=== PATIENT | female | born 1950 | race Caucasian/White ===

== ENCOUNTER 2019-01-24 16:49 | Emergency (ER) | payer OTHER ==
[2019-01-24] MEDS ORDERED: SODIUM CHLORIDE 0.9% (FLUSH) 10 ML SYG IV PRN (17:06)
[2019-01-24] MEDS ORDERED: MORPHINE SULFATE INJ 10 MG/ML VIAL IV ONE (17:10)
[2019-01-24 17:12] VITALS: O2SAT 99
[2019-01-24] MEDS ORDERED: ACETAMINOPHEN IV 1000MG 1,000 MG in PREMIX BOTTLE 1 BOTTLE IVPB ONE (17:27)
[2019-01-24] MEDS ORDERED: ACETAMINOPHEN IV 1000MG 100 ML ONE (17:35)
--- NOTE | 2019-01-24 19:12 | RAD ---
EXAM DESCRIPTION: Chest,1 View CLINICAL HISTORY: 68 years Female trauma COMPARISON: None. FINDINGS: The cardiomediastinal silhouette appears unremarkable. No consolidating infiltrates or pleural effusions. No pneumothorax. IMPRESSION: No acute abnormality is identified. Electronically signed by: Francisca Borjas MD 01/24/2019 7:11 PM LINE MAINTAINER
--- NOTE | 2019-01-24 19:13 | RAD ---
EXAM DESCRIPTION: Forearm,Right CLINICAL HISTORY: 68 years Female , limited mobility of arm COMPARISON: None. TECHNIQUE: RIGHT forearm, two views FINDINGS: No acute fractures or dislocations are identified. No osseous destructive lesions. IMPRESSION: No acute fracture is identified. Electronically signed by: Francisca Borjas MD 01/24/2019 7:12 PM [facility]
--- NOTE | 2019-01-24 19:16 | RAD ---
EXAM DESCRIPTION: Knee,Right 1 or 2 Views (accession [id number]), Femur,Right (accession [id number]), Pelvis (accession [id number]) CLINICAL HISTORY: 68 years Female, trauma COMPARISON: None. FINDINGS: No fracture or dislocation of the pelvis, right hip, femur and knee. Mild diffuse osteopenia. Joint spaces are grossly preserved. Mild medial knee joint space narrowing. Small suprapatellar joint effusion. Soft tissues are unremarkable. IMPRESSION: No acute osseous abnormality. Diffuse osteopenia and degenerative changes. Small suprapatellar joint effusion. Electronically signed by: Kevin Ware DO 01/24/2019 7:14 PM LITERATURE TEACHER
--- NOTE | 2019-01-24 19:16 | RAD ---
EXAM DESCRIPTION: Knee,Right 1 or 2 Views (accession [id number]), Femur,Right (accession [id number]), Pelvis (accession [id number]) CLINICAL HISTORY: 68 years Female, trauma COMPARISON: None. FINDINGS: No fracture or dislocation of the pelvis, right hip, femur and knee. Mild diffuse osteopenia. Joint spaces are grossly preserved. Mild medial knee joint space narrowing. Small suprapatellar joint effusion. Soft tissues are unremarkable. IMPRESSION: No acute osseous abnormality. Diffuse osteopenia and degenerative changes. Small suprapatellar joint effusion. Electronically signed by: Kevin Ware DO 01/24/2019 7:14 PM REFRIGERATION ENGINEER
--- NOTE | 2019-01-24 19:16 | RAD ---
EXAM DESCRIPTION: Knee,Right 1 or 2 Views (accession [id number]), Femur,Right (accession [id number]), Pelvis (accession [id number]) CLINICAL HISTORY: 68 years Female, trauma COMPARISON: None. FINDINGS: No fracture or dislocation of the pelvis, right hip, femur and knee. Mild diffuse osteopenia. Joint spaces are grossly preserved. Mild medial knee joint space narrowing. Small suprapatellar joint effusion. Soft tissues are unremarkable. IMPRESSION: No acute osseous abnormality. Diffuse osteopenia and degenerative changes. Small suprapatellar joint effusion. Electronically signed by: Kevin Ware DO 01/24/2019 7:14 PM MATERIALS DIRECTOR
--- NOTE | 2019-01-24 19:17 | RAD ---
EXAM DESCRIPTION: Hand,Right 3 Views CLINICAL HISTORY: 68 years Female, trauma COMPARISON: None. FINDINGS: No fracture or dislocation. Diffuse osteopenia. Advanced degenerative changes of the DIP. Degenerative changes of the first CMC. Dorsal hand swelling. IMPRESSION: No acute osseous abnormality. Osteoarthritic changes. Dorsal hand swelling. Electronically signed by: Kevin Ware DO 01/24/2019 7:15 PM DESOLDERER
--- NOTE | 2019-01-24 19:18 | RAD ---
EXAM DESCRIPTION: Humerus, right (accession [id number]), Shoulder, right 2 or More Views (accession [id number]) CLINICAL HISTORY: 68 years Female, trauma COMPARISON: None. FINDINGS/Impression: Acute fractures of the right greater tuberosity and humeral neck. No dislocation. Soft tissue swelling. Degenerative changes of the acromial clavicular joint.. Electronically signed by: Kevin Ware DO 01/24/2019 7:17 PM POLICE DISPATCHER
--- NOTE | 2019-01-24 19:19 | RAD ---
EXAM DESCRIPTION: Humerus, right (accession [id number]), Shoulder, right 2 or More Views (accession [id number]) CLINICAL HISTORY: 68 years Female, trauma COMPARISON: None. FINDINGS/Impression: Acute fractures of the right greater tuberosity and humeral neck. No dislocation. Soft tissue swelling. Degenerative changes of the acromial clavicular joint.. Electronically signed by: Kevin Ware DO 01/24/2019 7:17 PM MEDICAL INSURANCE CLAIMS PROCESSOR
--- NOTE | 2019-01-24 19:30 | ED.PDOC ---
History of Present Illness - General Chief Complaint: Trauma Stated Complaint: s/p fall Time Seen by Provider: 01/24/19 17:02 - History of Present Illness Initial Comments: pt fell down and hit the Right upper extremity and R lower extremity , having pain and decrease range of motion , no head injury Associated Symptoms: denies symptoms Allergies/Adverse Reactions: Allergies Cortisone Allergy (Verified 01/24/19 17:28) Doxycycline Allergy (Verified 01/24/19 17:28) Iodine Allergy (Verified 01/24/19 17:28) Morphine Allergy (Verified 01/24/19 17:28) Home Medications: Ambulatory Orders Acetaminophen W/ Codeine [Tylenol W/ CODEINE #3] 1 tablet PO Q6HRS #12 01/24/19 Review of Systems - Review of Systems Constitutional: States: no symptoms reported EENTM: States: no symptoms reported Respiratory: States: no symptoms reported Cardiology: States: no symptoms reported Gastrointestinal/Abdominal: States: no symptoms reported Genitourinary: States: no symptoms reported Musculoskeletal: States: see HPI Skin: States: no symptoms reported Neurological: States: no symptoms reported Endocrine: States: no symptoms reported Hematologic/Lymphatic: States: no symptoms reported Past Medical History (General) - Patient Medical History Hx Seizures: Yes Hx Stroke: No Hx Asthma: Yes Hx Cardiac Disorders: Yes - [place] Hx Congestive Heart Failure: No Hx Thyroid Disease: Yes Hx Diabetes: Yes Hx Cancer: Yes - Cervical - Vaccination History Hx Influenza Vaccination: Yes - Social History Hx Tobacco Use: Yes Family Medical History - Family History Mother Family History: Unknown Living Status: Physical Exam - Physical Exam General Appearance: Alert, Comfortable Eye Exam: bilateral normal Ears, Nose, Throat: normal ENT inspection Neck: non-tender, full range of motion, supple, normal inspection Respiratory: lungs clear, normal breath sounds, no respiratory distress, no accessory muscle use Cardiovascular/Chest: regular rate, rhythm, no edema, no gallop Gastrointestinal/Abdominal: non tender, soft, no organomegaly Extremity: other - tenderness over the R upper extremity and knee , decrease range of motion of R shoulder joint Progress - EKG/XRAY/CT EKG: Sinus, no ST T wave changes Departure - Departure Clinical Impression: Fracture of bone of right shoulder, Fracture of humerus Time of Disposition: 19:35 Disposition: Discharge to Home or Self Care Condition: Good Departure Forms: ED Discharge - Pt. Copy, Patient Portal Self Enrollment Instructions: DI for Trauma Diet: resume usual diet Prescriptions: Acetaminophen W/ Codeine [Tylenol W/ CODEINE #3] 1 tablet PO Q6HRS #12 Home Medications: Ambulatory Orders Acetaminophen W/ Codeine [Tylenol W/ CODEINE #3] 1 tablet PO Q6HRS #12 01/24/19 Additional Instructions: Follow up with PCP in 1-2 weeks Refer to ortho
[2019-01-24] MEDS ORDERED: ACETAMINOPHEN W/COD #3 TAB (ER Disp) PO ONE (19:38)
[2019-01-24 19:50] VITALS: BP 148/78; TEMP 98.2
== END 2019-01-24 20:22 | disposition home or self-care (01) ==
LOC: ER 16:49
DX: S42.251A Displaced fracture of greater tuberosity of right humerus, initial encounter for closed fracture (principal); S42.292A Other displaced fracture of upper end of left humerus, initial encounter for closed fracture; M79.604 Pain in right leg; M85.80 Other specified disorders of bone density and structure, unspecified site; R56.9 Unspecified convulsions; J45.909 Unspecified asthma, uncomplicated; I25.2 Old myocardial infarction; E07.9 Disorder of thyroid, unspecified; E11.9 Type 2 diabetes mellitus without complications; Z85.41 Personal history of malignant neoplasm of cervix uteri; Z88.8 Allergy status to other drugs, medicaments and biological substances; Z88.1 Allergy status to other antibiotic agents; Z91.041 Radiographic dye allergy status; Z88.5 Allergy status to narcotic agent; W19.XXXA Unspecified fall, initial encounter; Y92.89 Other specified places as the place of occurrence of the external cause

== ENCOUNTER 2019-01-25 16:47 | Observation (INO) | payer OTHER ==
[2019-01-25] MEDS ORDERED: MORPHINE SULFATE INJ 10 MG/ML VIAL IV ONE (17:35)
--- NOTE | 2019-01-25 17:36 | ED.PDOC ---
History of Present Illness - General Chief Complaint: Trauma Time Seen by Provider: 01/25/19 17:05 Source: patient Exam Limitations: no limitations - History of Present Illness Initial Comments: the patient is a 68-year-old female presenting to the emergency room secondary to uncontrolled pain, gait instability and inability to perform her activities of daily living. Apparently yesterday the patient fell and broke her proximal right humerus. She was appropriately placed in a sling. She broke the right side and that is her dominant side. The patient does have long-standing gait instability issues related to vertigo and chronic back pain. She normally has to use a cane on her right side but is currently unable to do that. She is having diffuse pain from a fall yesterday including left-sided chest wall pain, left shoulder pain, left knee pain, left hip pain, all of which is contributing to increased gait instability. She reports that she almost fell several times last night. She is unable to dress herself or take care of herself at this point. The pain is uncontrolled with oral medications. She is a type II diabetic. Timing/Duration: 24 hours Severity: severe Improving Factors: immobilization Worsening Factors: movement Associated Symptoms: chest pain, weakness Allergies/Adverse Reactions: Allergies Cortisone Allergy (Verified 01/24/19 17:28) Doxycycline Allergy (Verified 01/24/19 17:28) Iodine Allergy (Verified 01/24/19 17:28) Morphine Allergy (Verified 01/24/19 17:28) Home Medications: Ambulatory Orders Acetaminophen W/ Codeine [Tylenol W/ CODEINE #3] 1 tablet PO Q6HRS #12 01/24/19 Review of Systems - Review of Systems Constitutional: States: malaise EENTM: States: no symptoms reported Respiratory: States: no symptoms reported Cardiology: States: chest pain - chest wall pain Gastrointestinal/Abdominal: States: no symptoms reported Genitourinary: States: no symptoms reported Musculoskeletal: States: see HPI, back pain - chronic Skin: States: no symptoms reported Neurological: States: anxiety Endocrine: States: no symptoms reported All other Systems: No Change from Baseline Past Medical History (General) - Patient Medical History Hx Seizures: Yes Hx Stroke: No Hx Asthma: Yes Hx Cardiac Disorders: Yes - CT Hx Congestive Heart Failure: No Hx Thyroid Disease: Yes Hx Diabetes: Yes Hx Cancer: Yes - Cervical - Vaccination History Hx Influenza Vaccination: Yes Hx Pneumococcal Vaccination: Yes - Social History Hx Tobacco Use: Yes Family Medical History - Family History Mother Family History: Unknown Living Status: Physical Exam - Physical Exam General Appearance: Alert, Anxious Eye Exam: bilateral normal Ears, Nose, Throat: hearing grossly normal, normal pharynx Neck: non-tender, supple Respiratory: lungs clear, normal breath sounds, no respiratory distress, no accessory muscle use, other - left chest wall is tender to palpation. No crepitus. No obvious deformity. Cardiovascular/Chest: normal peripheral pulses, regular rate, rhythm, no edema Peripheral Pulses: radial,right: 2+, radial,left: 2+ Gastrointestinal/Abdominal: non tender, soft Rectal Exam: deferred Back Exam: other - the patient has diffuse discomfort to palpation over the left side of her upper back. No gross deformity. Mild bruising. Extremity: no pedal edema, no calf tenderness, normal capillary refill, other - the patient has tenderness diffusely over the left lower extremity. Her right upper extremity is currently in a sling but does appear to have good neurovascular standing. Neurologic: human resources department supervisor II-XII nml as tested, alert, normal mood/affect, oriented x 3 Skin Exam: normal color - mild scattered bruising from fall Comments: Vital Signs - 24 hr 01/25/19 16:58 Temperature 97.7 F Pulse Rate [ 86 right brachial] Respiratory 18 Rate Blood Pressure 137/73 [right brachial ] O2 Sat by Pulse 97 Oximetry Progress - Progress Progress: 01/25/19 17:38 the patient is a 68-year-old female seen here yesterday secondary to a fall which had given her a right proximal humerus fracture. The patient has done poorly since her discharge home yesterday. She has almost fallen multiple times and is a very high fall risk given her chronic medical issues and the fact that she is unable to stabilize with her cane in her dominant hand. The patient is having uncontrolled pain. The patient will be admitted for further pain control tonight. We will assist with her ADLs tonight to prevent further injury. We'll plan on continuing home medications for chronic medical problems. The patient will likely need physical therapy and rehabilitation in the very near future in order to gain gait stability and independence with some other form of an assistive device. Departure - Departure Clinical Impression: Uncontrolled pain, Inability to perform activities of daily living, Gait instability Proximal humerus fracture Qualifiers: Encounter type: subsequent encounter Fracture type: closed Fracture morphology: other fracture Fracture alignment: displaced Laterality: right Fracture healing: with routine healing Qualified Code(s): S42.291D - Other displaced fracture of upper end of right humerus, subsequent encounter for fracture with routine healing Disposition: Admit Patient Departure Forms: ED Discharge - Pt. Copy, Patient Portal Self Enrollment Home Medications: Ambulatory Orders Acetaminophen W/ Codeine [Tylenol W/ CODEINE #3] 1 tablet PO Q6HRS #12 01/24/19 Decision To Admit - Decistion To Admit Decision to Admit Reason: Medical Nature Decision to Admit Date: 01/25/19 Decision to Admit Time: 17:42
[2019-01-25] MEDS ORDERED: CARVEDILOL 3.125 MG TAB PO ONE (18:32)
[2019-01-25] MEDS ORDERED: ALPRAZolam 0.5 MG TAB PO PRN (21:08)
[2019-01-25] MEDS ORDERED: ALUM & MAG HYDROX-SIMETHICONE 30 ML UD PO PRN (21:11)
[2019-01-25] MEDS ORDERED: MAGNESIUM HYDROXIDE 30 ML UD PO PRN (21:11)
[2019-01-25] MEDS ORDERED: SODIUM CHLORIDE 0.9% (FLUSH) 10 ML SYG IV PRN (21:11)
[2019-01-25] MEDS ORDERED: ONDANSETRON INJ 4 MG/2 ML VIAL IV PRN (21:11)
[2019-01-25] MEDS ORDERED: MORPHINE SULFATE INJ 10 MG/ML VIAL IV PRN (21:11)
[2019-01-25] MEDS ORDERED: DEXTROSE 50% 25 GM/50 ML SYG IV PRN (21:11)
[2019-01-25] MEDS ORDERED: GLUCAGON INJ 1 MG VIAL SUBCU PRN (21:11)
[2019-01-25] MEDS ORDERED: ACETAMINOPHEN 325 MG TAB PO PRN (21:11)
[2019-01-25] MEDS ORDERED: ALPRAZolam 0.25 MG TAB ONE (21:12)
[2019-01-25] MEDS ORDERED: NON-FORMULARY MEDICATION 1 EA MIS (Carvedilol [Coreg] 6.25 MG) PO SCH (21:30)
[2019-01-25] MEDS: GABAPENTIN 300 MG CAP PO SCH (21:40)
[2019-01-25] MEDS: IV SET AND CAP CHANGE INJ INJ SCH (21:40)
[2019-01-26] MEDS ORDERED: MORPHINE SULFATE INJ 10 MG/ML VIAL ONE (06:01)
[2019-01-26] MEDS ORDERED: INSULIN,ISOP(HUMAN(NPH) 100 UNITS/ML PEN SUBCU ONE (07:26)
[2019-01-26] MEDS: INSULIN LISPRO 100 UNITS/ML PEN SUBCU SCH ×4 (07:35→21:30)
[2019-01-26] MEDS: VENLAFAXINE XR 75 MG CAP PO SCH (08:35)
[2019-01-26] MEDS: HYDROcodone 5MG/APAP 325MG 1 EA TAB PO PRN ×4 (08:35→20:06)
[2019-01-26] MEDS: GABAPENTIN 300 MG CAP PO SCH ×2 (08:36→20:12)
[2019-01-26] MEDS: amLODIPine BESYLATE 5 MG TAB PO SCH (08:36)
[2019-01-26] MEDS: ASPIRIN (CHEWABLE) 81 MG TAB PO SCH (08:36)
[2019-01-26] MEDS: CARVEDILOL 3.125 MG TAB PO SCH ×2 (08:36→20:12)
[2019-01-26] MEDS ORDERED: DEXTROSE 10% 500ML IVPB PRN (09:00)
--- NOTE | 2019-01-26 11:36 | SSS ---
SUPERVISING PHYSICIAN: Haresh Moreno MD CHIEF COMPLAINT: Frequent falls and right humerus fracture. HISTORY OF PRESENT ILLNESS: This is a 68-year-old female who came to the Emergency Room yesterday due to uncontrolled pain in the right humerus fracture site as well as gait instability. Apparently she has had frequent falls recently. She states she has vertigo and that has caused the falls, but this particular episode where she broke her humerus, she actually just tripped on a step and fell. She utilizes a cane on a normal basis, however, due to the humerus fracture, she has been unable to utilize the cane. In the Emergency Room, she was seen the day prior where she was found to have the humerus fracture, however, returned to the Emergency Room with the uncontrolled pain as well as gait instability. She was referred for observation with a plan for potential rehab evaluation. At the time of admission, the patient is alert and oriented. She complains of arm pain around the site of the humerus fracture, but at this time is controlled. She also complains of anxiety and she does take Xanax on a regular basis. PAST MEDICAL HISTORY: 1. Vertigo. 2. Thyroid disease. 3. Chronic kidney disease. 4. Hypertension. 5. Cluster headaches/migraines. 6. Hyperlipidemia. 7. Myocardial infarction in 2004. 8. Incisional hernia. 9. Diabetes mellitus, type 2. PAST SURGICAL HISTORY: 1. Hysterectomy. 2. Mandibular osteotomy. 3. Bilateral cataract surgery. 4. Bilateral carotid endarterectomy. 5. PTCA with stent. 6. Left knee patellar fracture surgery. HOME MEDICATIONS: 1. Xanax 0.5 mg p.r.n. 2. Amlodipine 5 mg daily. 3. Aspirin 81 mg daily. 4. Carvedilol 6.25 mg p.o. b.i.d. 5. Gabapentin 300 mg p.o. b.i.d. 6. Glimepiride 4.5 mg p.o. b.i.d. 7. Meclizine 25 mg p.o. t.i.d. p.r.n. for dizziness. 8. Topamax 50 mg p.o. p.r.n. for migraine. 9. Venlafaxine ER 150 mg p.o. daily. 10. Acetaminophen with codeine 30/300 mg every 6 hours p.r.n. pain. ALLERGIES: MORPHINE. FAMILY HISTORY: Mother of congestive heart failure. Father of a stroke and had history of diabetes. SOCIAL HISTORY: She has smoked half a pack a day for the last 30 years. No alcohol, no illicit drugs. REVIEW OF SYSTEMS: CONSTITUTIONAL: No fever or chills. No recent weight loss or weight gain. HEENT: No headaches, vision changes, ear pain, nasal congestion or throat pain. RESPIRATORY: No cough, hemoptysis or pleuritic chest pain. CARDIOVASCULAR: No chest pain, palpitations or peripheral edema. GASTROINTESTINAL: No nausea, vomiting, diarrhea, constipation or abdominal pain. GENITOURINARY: No dysuria, frequency or flank pain. MUSCULOSKELETAL: She did have the right arm pain. No muscle cramps or joint swelling. ENDOCRINE: No polydipsia, polyuria or polyphagia. No heat or cold intolerance. NEUROLOGIC: Positive for dizziness. No syncope, paresthesias. PHYSICAL EXAMINATION: VITAL SIGNS: Blood pressure 135/76. Heart rate 74. Respiratory rate 16. Temperature 97.0. Oxygen saturation 94%. GENERAL: Ms. Carlos is a 68-year-old female in no active distress. NEUROLOGIC: The patient is alert and oriented. LUNGS: Clear to auscultation bilaterally. CARDIOVASCULAR: Regular rate and rhythm. Normal S1, S2. ABDOMEN: Soft. Positive bowel sounds. GENITOURINARY: Deferred. EXTREMITIES: Lower extremities with no edema. Right upper extremity is in a sling. Pulses 2+. Capillary refill is less than 2 seconds. No paresthesias. ASSESSMENT: 1. Right humerus fracture status post fall. 2. History of vertigo. 3. History of coronary artery disease. 4. Hypertension. 5. Hyperlipidemia. 6. Diabetes mellitus, type 2. PLAN: At this time, the patient is admitted to the Medical/Surgical Floor for observation. We are assisting with activities of daily living additionally. [facility] has been contacted to evaluate for rehabilitation. She has agreed to this and they will evaluate today. We will resume her home medications at this time and continue supportive care until transfer. #[id number] [facility]
[2019-01-26] MEDS: ALPRAZolam 0.25 MG TAB PO PRN (11:49)
[2019-01-26] MEDS: CLOPIDOGREL 75 MG TAB PO SCH (20:12)
[2019-01-27] MEDS: HYDROcodone 5MG/APAP 325MG 1 EA TAB PO PRN ×3 (07:50→20:17)
[2019-01-27] MEDS: INSULIN LISPRO 100 UNITS/ML PEN SUBCU SCH ×4 (08:30→21:10)
[2019-01-27] MEDS: VENLAFAXINE XR 75 MG CAP PO SCH (08:31)
[2019-01-27] MEDS: amLODIPine BESYLATE 5 MG TAB PO SCH (08:32)
[2019-01-27] MEDS: GABAPENTIN 300 MG CAP PO SCH ×2 (08:32→20:16)
[2019-01-27] MEDS: CARVEDILOL 3.125 MG TAB PO SCH ×2 (08:32→20:16)
[2019-01-27] MEDS: ASPIRIN (CHEWABLE) 81 MG TAB PO SCH (08:32)
[2019-01-27] MEDS: CLOPIDOGREL 75 MG TAB PO SCH (20:16)
--- NOTE | 2019-01-27 20:48 | PN ---
DATE: 01/27/19 SUPERVISING PHYSICIAN: Haresh Moreno M.D. SUBJECTIVE: The patient states she does not really feel that well today, although she is in no distress. OBJECTIVE: VITAL SIGNS: Blood pressure 105/79, heart rate 81, respiratory rate 18, temperature 98.0, oxygen saturation 93%. GENERAL: Ms. Carlos is a 68 year-old female in no severe distress. NEUROLOGIC: The patient is alert and oriented. LUNGS: Clear to auscultation bilaterally. CARDIOVASCULAR: Regular rate and rhythm. Normal S1 and S2. ABDOMEN: Soft. Positive bowel sounds. EXTREMITIES: Right upper extremity is in a sling. ASSESSMENT: 1. Right humerus fracture status post fall. 2. History of vertigo. 3. History of coronary artery disease. 4. Hypertension. 5. Hyperlipidemia. 6. Diabetes mellitus, type 2. PLAN: We are still awaiting acceptance to [facility]. This is based on her insurance which is [employer]. That is the only holdup on getting her there at this time. She states she really does not have anywhere to go. Apparently she was living in a hotel room and lost her wallet. The [employer] is attempting to contact the grandson to try to make arrangements for her to go there before she goes to rehab. Continue supportive measures at this time. [id number] [facility]
[2019-01-28] MEDS: HYDROcodone 5MG/APAP 325MG 1 EA TAB PO PRN ×3 (04:09→23:42)
[2019-01-28] MEDS: INSULIN LISPRO 100 UNITS/ML PEN SUBCU SCH ×4 (08:19→20:44)
[2019-01-28] MEDS: VENLAFAXINE XR 75 MG CAP PO SCH (08:27)
[2019-01-28] MEDS: CARVEDILOL 3.125 MG TAB PO SCH ×2 (08:28→20:16)
[2019-01-28] MEDS: ASPIRIN (CHEWABLE) 81 MG TAB PO SCH (08:28)
[2019-01-28] MEDS: GABAPENTIN 300 MG CAP PO SCH ×2 (08:28→20:16)
[2019-01-28] MEDS: amLODIPine BESYLATE 5 MG TAB PO SCH (08:28)
--- NOTE | 2019-01-28 13:07 | PN ---
SUPERVISING PHYSICIAN: Haresh Moreno M.D. DATE: 01/28/19 SUBJECTIVE: There are no reported changes by the nurses overnight. The patient does not have any significant complaints. She still has the arm in the sling. She complains of intermittent pain with that. OBJECTIVE: VITAL SIGNS: Blood pressure 160/58. Heart rate 72. Respiratory rate 18. Temperature 97.5. Oxygen saturation 96%. GENERAL: Ms. Carlos is a 68-year-old female in no active distress currently. NEUROLOGIC: The patient is alert and oriented. LUNGS: Clear to auscultation bilaterally. CARDIOVASCULAR: Regular rate and rhythm. Normal S1 and S2. ABDOMEN: Soft. Positive bowel sounds. EXTREMITIES: Right upper extremity is still in a sling. ASSESSMENT: 1. Right humerus fracture status post fall. 2. History of vertigo. 3. History of coronary artery disease. 4. Hypertension. 5. Hyperlipidemia. 6. Diabetes mellitus, type 2. PLAN: We are still waiting on insurance to clear her to go to [facility]. I am going to continue all her medications at this time. #[id number] [facility]
[2019-01-28] MEDS: CLOPIDOGREL 75 MG TAB PO SCH (20:16)
[2019-01-28] MEDS: IV SET AND CAP CHANGE INJ INJ SCH (20:16)
[2019-01-28] MEDS: ALPRAZolam 0.25 MG TAB PO PRN (23:42)
[2019-01-29] MEDS: HYDROcodone 5MG/APAP 325MG 1 EA TAB PO PRN (06:02)
[2019-01-29] MEDS: INSULIN LISPRO 100 UNITS/ML PEN SUBCU SCH ×2 (07:53→12:14)
[2019-01-29] MEDS: VENLAFAXINE XR 75 MG CAP PO SCH (08:25)
[2019-01-29] MEDS: ASPIRIN (CHEWABLE) 81 MG TAB PO SCH (08:26)
[2019-01-29] MEDS: amLODIPine BESYLATE 5 MG TAB PO SCH (08:26)
[2019-01-29] MEDS: GABAPENTIN 300 MG CAP PO SCH (08:26)
[2019-01-29] MEDS: CARVEDILOL 3.125 MG TAB PO SCH (08:26)
[2019-01-29 16:16] VITALS: BP 119/76; TEMP 98.1; O2SAT 96
--- NOTE | 2019-02-02 14:52 | DS ---
SUPERVISING PHYSICIAN: Haresh Moreno MD ADMISSION DIAGNOSIS: 1. Right humerus fracture status post fall. 2. History of vertigo. 3. History of coronary artery disease. 4. Hypertension. 5. Hyperlipidemia. 6. Diabetes mellitus, type 2. DISCHARGE DIAGNOSIS: 1. Right humerus fracture status post fall. 2. History of vertigo. 3. History of coronary artery disease. 4. Hypertension. 5. Hyperlipidemia. 6. Diabetes mellitus, type 2. REASON FOR HOSPITALIZATION: This is a 68-year-old female who came to the Emergency Room yesterday due to uncontrolled pain in the right humerus fracture site as well as gait instability. Apparently she has had frequent falls recently. She states she has vertigo and that has caused the falls, but this particular episode where she broke her humerus, she actually just tripped on a step and fell. She utilizes a cane on a normal basis, however, due to the humerus fracture, she has been unable to utilize the cane. In the Emergency Room, she was seen the day prior where she was found to have the humerus fracture, however, returned to the Emergency Room with the uncontrolled pain as well as gait instability. She was referred for observation with a plan for potential rehab evaluation. At the time of admission, the patient is alert and oriented. She complains of arm pain around the site of the humerus fracture, but at this time is controlled. She also complains of anxiety and she does take Xanax on a regular basis. LABORATORY: Blood sugars ranged between 166 and 252. Urinalysis showed white count on microscopic 10 to 20 with 1 to 3 epithelials, 1+ bacteria, small amount of leukocyte esterase on dipstick with 500 glucose. HOSPITAL COURSE: Ms. Carlos was admitted for pain control as she did have a proximal humerus fracture and is advanced in age and lives by herself. Arrangements were worked on to send her to [facility] for rehabilitation efforts as she was having some difficulty initially with her activities of daily living. She progressed well through her hospitalization and actually was denied by her insurance inpatient rehabilitation, but recommended SNF if needed and the patient refused and wished to be discharged home. Arrangements were made with friends and family to stay with the patient and therefore the patient could continue with outpatient management. A splint was placed on the patient from Dr. Gomes's office and she will need followup. PLAN: Ms. Carlos was discharged on 12/06/19 with instructions to followup with her primary care provider within the next week after discharge. She was given Tylenol No. 3 for pain management. She was told to resume her diabetic diet as tolerated, activities as tolerated, but no pushing or pulling with the left arm or upper extremity. Utilize splint as needed. She is to see Dr. Shepherd in followup in a couple of weeks. MEDICATIONS AT DISCHARGE: 1. Tylenol No. 3, 1 q.4h. as needed, #20, no refills. All other medications prior to hospitalization were continued. DISPOSITION: The patient was discharged to care of family members and friends. CONDITION ON DISCHARGE: Stable and improved. [facility][id number] [facility]
== END 2019-01-29 16:35 | disposition home or self-care (01) ==
LOC: ER 16:47 → MS 18:57
PROVIDERS: ADMIT Nurse Practitioner; ATTEND Nurse Practitioner Family
DX: G89.11 Acute pain due to trauma (principal); S42.201D Unspecified fracture of upper end of right humerus, subsequent encounter for fracture with routine healing; R26.81 Unsteadiness on feet; F41.9 Anxiety disorder, unspecified; I12.9 Hypertensive chronic kidney disease with stage 1 through stage 4 chronic kidney disease, or unspecified chronic kidney disease; E11.22 Type 2 diabetes mellitus with diabetic chronic kidney disease; N18.9 Chronic kidney disease, unspecified; E78.5 Hyperlipidemia, unspecified; E07.9 Disorder of thyroid, unspecified; R42 Dizziness and giddiness; I25.10 Atherosclerotic heart disease of native coronary artery without angina pectoris; I25.2 Old myocardial infarction; F17.210 Nicotine dependence, cigarettes, uncomplicated; J45.909 Unspecified asthma, uncomplicated; W01.0XXD Fall on same level from slipping, tripping and stumbling without subsequent striking against object, subsequent encounter; Z79.84 Long term (current) use of oral hypoglycemic drugs; Z79.82 Long term (current) use of aspirin; Z79.899 Other long term (current) drug therapy; Z88.6 Allergy status to analgesic agent; Z88.3 Allergy status to other anti-infective agents; Z88.8 Allergy status to other drugs, medicaments and biological substances; Z91.81 History of falling; Z74.1 Need for assistance with personal care; Z95.5 Presence of coronary angioplasty implant and graft; Z85.41 Personal history of malignant neoplasm of cervix uteri; Z90.710 Acquired absence of both cervix and uterus; Z82.49 Family history of ischemic heart disease and other diseases of the circulatory system; Z82.3 Family history of stroke; Z83.3 Family history of diabetes mellitus
CPT/HCPCS: 96374; 96375; 96372 ×4; J2270 ×2; J2405; 87086; 82948 ×14; 81001; 36416 ×12; 94760 ×6; G8978; 97162; 99285; G0378

== ENCOUNTER → 2019-02-15 | Outpatient (CLI) | payer OTHER ==
--- NOTE | 2019-02-15 10:33 | RAD ---
The radiograph right shoulder Indication: PAIN IN RIGHT SHOULDER Comparison: January 24, 2019 Impression: Previously noted acute fracture involving the anatomic and surgical neck and greater tuberosity of the right humerus redemonstrated. Fracture alignment appears similar to prior. There is progressive callus formation and periostitis, however the fracture remains largely ununited with minimal if any bridging callus formation. No new fracture. Electronically signed by: Hernesto Polanco MD 02/15/2019 10:[address] [facility] [facility]
== END ==
LOC: RAD 08:53
PROVIDERS: ATTEND Orthopaedic Surgery
DX: S42.201D Unspecified fracture of upper end of right humerus, subsequent encounter for fracture with routine healing (principal)